=== PATIENT | male | born 1965 | race Caucasian/White ===

== ENCOUNTER 2022-03-28 21:03 | Emergency (ER) | payer SELFPAY ==
[2022-03-28 21:04] VITALS: BP 138/92; PULSE 79; RESP 16; TEMP 36.4; O2SAT 98; BMI 23.7
[2022-03-28 22:04] VITALS: RESP 18
--- NOTE | 2022-03-28 22:19 | EKG12_ITS ---
Test Reason : MHC Blood Pressure : / mmHG Vent. Rate : 062 BPM Atrial Rate : 062 BPM P-R Int : 166 ms QRS Dur : 068 ms QT Int : 404 ms P-R-T Axes : 053 026 -38 degrees QTc Int : 410 ms Normal sinus rhythm with PSVC's Nonspecific T wave abnormality Abnormal ECG Confirmed by SOFÍA GARCIA, JOANNE ([id number]), video effects editor ANTOINETTE MARTINEZ ([id number]) on 03/29/2022 11:39:39 AM Referred By: VERONICA Confirmed By:JOANNE GORE MD
--- NOTE | 2022-03-28 22:20 | EDS_ITS ---
HPI HPI - Psych History of Present Illness Chief Complaint: Mental Health Narrative Narrative: History and physical is mildly limited secondary to psychiatric disorder. Patient presents with [facility] department with probate court order for mental health evaluation. It was reported that the patient's sister was concerned about the patient. He denies any previous psychiatric disorder states he does not take any daily medication. He was at [place], [place] where he lives, and states he came down to [facility] with his cat and was staying at a campground for which she paid $35 to stay. He states that this year if hold him in and he does not know why. According to the probate court, patient is paranoid and thinks that people are out to get him, and that food is poisoned. Additionally, he states that he was going to leave the state and right out a will in front of 2 people and was not sure what was going to happen to him. He presents for psychiatric evaluation. [facility] Medical History no medical history Home Medications NK 03/28/22 [History Last Taken Unknown] Allergy/AdvReac Type Severity Reaction Status Date / Time No Known Allergies Allergy Verified 03/28/22 21:06 Social History Smoking Status: Current every day smoker tobacco type: smokeless tobacco ROS ROS ED ROS Narrative Mildly limited secondary to psychiatric condition. Constitutional: No fever, no chills. HEENT: No sore throat. No neck pain. No loss of vision. No rhinorrhea. Cardiovascular: No chest pain. No palpitations. No pedal edema. Respiratory: No cough, no shortness of breath. Abdominal: No abdominal pain. No nausea. No vomiting. Genitourinary: No dysuria. No hematuria. Musculoskeletal: No myalgias. No arthralgias. Neurologic: No headaches. No dizziness. No lightheadedness. Skin: No rash. No change in color. Psychiatric: No depression. No anxiety. Denies suicidal ideation. EXAM Physical Exam Narrative Exam Narrative: Afebrile. Vital signs noted. HEENT: Normocephalic. Atraumatic. PERRL, EOMI. Neck soft and supple. No point tenderness or step off. Cardiovascular: Regular rate and rhythm. No murmurs, rubs, or gallops appreciated. Respiratory: No tachypnea. Lungs clear to auscultation bilaterally. Gastrointestinal: Abdomen soft, nontender, with normoactive bowel sounds. No rebound or guarding. Neurological: Awake. Alert. Oriented x3. Nonfocal, nonlateralizing. Skin: No rash. Normal color. No pallor. Musculoskeletal: No pedal edema. Full range of motion extremities. Psychiatric: Denies suicidal ideation. No active hallucinations. However, Deputy Benítez reports the patient had taken off his hat, and claims that there were antennae inside. Const Vital Signs: 03/28/22 21:04 03/28/22 22:04 03/28/22 23:00 Temperature 97.6 F L Temperature Source Temporal Pulse Rate 79 Respiratory Rate 16 18 16 Blood Pressure 138/92 H Blood Pressure Mean 107 Pulse Ox 98 Oxygen Delivery Method Room Air Room Air Room Air MDM MDM MDM Narrative Medical decision making narrative: Medical clearance labs were obtained. EKG demonstrates normal sinus rhythm at 62 bpm with PVC, but no acute STEMI. Once he is medically cleared, he will be evaluated by crisis. However, social work is still available here. CBC is grossly unremarkable. Electrolyte panel shows slightly elevated creatinine of 1.35 which I think is nonspecific with a BUN of 20. Urine drug screen is negative. Blood alcohol is also negative. I do feel that he is medically cleared. In review of the probate court mandate, he is to be evaluated at [facility]. earth moving technician did discuss this with psychiatric intake nurse at that facility. Patient will be transferred to ED triage and has automatically been accepted as this was mandated by the probate court. Disposition is transferred in stable condition. Lab Data Attestation: I reviewed the patient's lab results. Labs: Laboratory Results - last 24 hr 03/28/22 03/28/22 03/28/22 22:10 22:10 22:10 WBC 6.4 RBC 5.17 Hgb 15.8 Hct 46.0 MCV 89.0 MCH 30.6 MCHC 34.3 RDW Std Deviation 40.5 RDW Coeff of Manisha 12.3 Plt Count 213 MPV 9.1 Immature Gran % (Auto) 0.300 Neut % (Auto) 72.3 H Lymph % (Auto) 17.0 L Forest % (Auto) 7.8 Eos % (Auto) 2.0 Baso % (Auto) 0.6 Absolute Neuts (auto) 4.6 Absolute Lymphs (auto) 1.09 Nucleated RBC % 0 Sodium 140 Potassium 4.6 Chloride 106 Carbon Dioxide 29.0 Anion Gap 5 BUN 20 H Creatinine 1.35 H Estim Creat Clear Calc 68.66 Est GFR (MDRD) Af Amer 71 Est GFR (MDRD) Non-Af 58 L BUN/Creatinine Ratio 14.8 Glucose 125 H Calcium 9.8 Total Bilirubin 0.70 AST 24 ALT 36 Alkaline Phosphatase 121 H Total Protein 8.0 Albumin 4.3 Globulin 3.7 Albumin/Globulin Ratio 1.2 Urine Opiates Screen Urine Methadone Screen Ur Barbiturates Screen Ur Phencyclidine Scrn Ur Amphetamines Screen MDMA (Ecstasy) Screen U Benzodiazepines Scrn Urine Cocaine Screen U Cannabinoids Screen Ur Drug Screen Comment Ethyl Alcohol < 3.0 03/28/22 22:10 WBC RBC Hgb Hct MCV MCH MCHC RDW Std Deviation RDW Coeff of Manisha Plt Count MPV Immature Gran % (Auto) Neut % (Auto) Lymph % (Auto) Forest % (Auto) Eos % (Auto) Baso % (Auto) Absolute Neuts (auto) Absolute Lymphs (auto) Nucleated RBC % Sodium Potassium Chloride Carbon Dioxide Anion Gap BUN Creatinine Estim Creat Clear Calc Est GFR (MDRD) Af Amer Est GFR (MDRD) Non-Af BUN/Creatinine Ratio Glucose Calcium Total Bilirubin AST ALT Alkaline Phosphatase Total Protein Albumin Globulin Albumin/Globulin Ratio Urine Opiates Screen NEGATIVE Urine Methadone Screen NEGATIVE Ur Barbiturates Screen NEGATIVE Ur Phencyclidine Scrn NEGATIVE Ur Amphetamines Screen NEGATIVE MDMA (Ecstasy) Screen NEGATIVE U Benzodiazepines Scrn NEGATIVE Urine Cocaine Screen NEGATIVE U Cannabinoids Screen NEGATIVE Ur Drug Screen Comment Ethyl Alcohol Discharge Plan Triage Chief Complaint: Mental Health ED Provider: Donny Meyer Dx/Rx/DC Orders Clinical Impression: Psychosis, Paranoia, Suicidal ideation Prescriptions: No Action NK Primary Care Provider: Care Physician,No Primary Disposition Disposition: Psychiatric Hospital or Unit Discharge Location: [facility]
[2022-03-28 22:34] LABS: Absolute Lymphocyte Count 1.09 X10^3/uL (0.83-4.51); Absolute Neutrophil Count 4.6 X10^3/uL (2.0-7.7); Basophil# 0.04 X10^3/uL; Basophil% 0.6 % (0-1); Eosinophil# 0.13 X10^3/uL; Hemoglobin 15.8 g/dL (13.0-16.5); Lymphocyte # 1.09 X10^3/ul (0.83-4.51); Mean Corp Hgb Conc 34.3 g/dL (32-36); Mean Corpuscular Hgb 30.6 pg (27.0-32.0); Mean Platelet Vol. 9.1 fl (6.2-12.0); Monocyte% 7.8 % (0-10); NRBC Flagged by Analyzer 0 % (0-5); Neutrophil # 4.63 X10^3/uL (2.7-7.7); Neutrophil % 72.3 % (47-70); Platelet Count 213 K/mm3 (150-450); RBC Distribution Width CV 12.3 % (11.6-14.6); RBC Distribution Width SD 40.5 fl (35.1-43.9); Red Blood Count 5.17 M/mm3 (4.6-6.2); White Blood Count 6.4 K/mm3 (4.4-11.0)
--- NOTE | 2022-03-28 22:49 | CM.ED ---
ANGEL Note ANGEL was advised that patient was brought into the ED. He is on court order for evaluation. ANGEL reviewed the probate order from [facility] and it speaks to patient being elevated at [facility] or [facility] designated inpatient facility. [facility] is not an inpatient psych facility. ANGEL called Crisis and spoke to Zohra and updated her. ANGEL called [facility] and reviewed situation with Elisabeth nurse. She said that they do not do direct admits so patient needs to come to the ED for assessment. Elisabeth was given Crisis phone number. ANGEL updated MD that court order says [facility] or designated inpatient facility. MD will call for transfer. David Holloway RN advised he spoke to [facility] and the court orders that patient go to [facility] he can be transferred to [facility]. ANGEL updated Zohra at Crisis that patient is being sent to [facility] for evaluation. Cat HAGER
[2022-03-28 22:50] LABS: ALB/GLOB Ratio 1.2 RATIO (0.9-2.4); AST(SGOT) 24 U/L (15-37); Alanine Aminotransfer ALT/SGPT 36 U/L (16-61); Albumin, Serum 4.3 g/dL (3.2-5.0); Alkaline Phosphatase 121 U/L (45-117); Anion Gap 5 (5-15); BUN 20 mg/dL (7-18); BUN/Creat Ratio 14.8 RATIO (10-20); Calcium,Total 9.8 mg/dL (8.5-10.1); Chloride 106 mmol/L (98-107); Creatinine, Serum 1.35 mg/dL (0.70-1.30); EST Glomerular Filtration Rate 58 mL/min (>60); Est Glom Filt Rate - Afr Amer 71 mL/min (>60); Estimated Creatinine Clearance 68.66 ml/min; Globulin 3.7 g/dL (2.2-4.2); Glucose 125 mg/dL (74-106); Potassium 4.6 mmol/L (3.5-5.1); Sodium Level 140 mmol/L (136-145)
[2022-03-28 23:00] VITALS: RESP 16
[2022-03-28 23:03] LABS: Amphetamine Urine VISTA NEGATIVE (<1000 ng/mL); Barbiturate Urine VISTA NEGATIVE (< 200 ng/mL); Benzodiazepine Urine VISTA NEGATIVE (< 200 ng/mL); Cocaine Urine VISTA NEGATIVE (< 300 ng/mL); Ecstacy Urine VISTA NEGATIVE (< 500 ng/mL); Methadone Urine VISTA NEGATIVE (< 300 ng/mL); PCP Urine VISTA NEGATIVE (< 25 ng/mL); THC Urine VISTA NEGATIVE (< 50 ng/mL); Vista UDS pH Range 4
[2022-03-28 23:19] LABS: Alcohol, Blood (Medical)-Serum < 3.0 mg/dL
[2022-03-29] VITALS: BP 131/89; PULSE 75; RESP 18; TEMP 36.6; O2SAT 97
[2022-03-29 01:00] VITALS: RESP 17
== END 2022-03-29 02:05 ==
PROVIDERS: Emergency Provider Emergency Medicine; Visit Provider Emergency Medicine
DX: F29 Unspecified psychosis not due to a substance or known physiological condition (principal); R45.851 Suicidal ideations; F17.220 Nicotine dependence, chewing tobacco, uncomplicated
CPT/HCPCS: 80053; 80307; 82077; 85025; 87811; 93005; 99285